=== PATIENT | female | born 1995 | race Caucasian/White ===

== ENCOUNTER 2016-06-10 21:02 | Emergency (ER) | payer OTHER ==
[2016-06-10 21:09] VITALS: BP 110/69; PULSE 79; RESP 16; TEMP 98.4; O2SAT 98
[2016-06-10 21:25] LABS: COLOR YELLOW; LEUKOCYTE ESTERASE,URINE 2+ (NEGATIVE); NITRITE,URINE NEGATIVE (NEGATIVE)
[2016-06-10 21:40] LABS: MUCUS TRACE /lpf (NONE-1+); RBC,URINE 50-182 /hpf (0-3); WBC,URINE 50-182 /hpf (0-3)
--- NOTE | 2016-06-10 21:43 | EDPHY ---
H & P Smoking Status: Never smoked Time Seen by Provider: 06/10/16 21:27 HPI/ROS: This is a 21-year-old female presenting to the emergency department complaining painful urination with blood onset tonight around 1900. Patient complaining of feeling pressure right around the suprapubic area, she does report she had an IUD placed 1 week ago so not sure if that is causing discomfort. Denies any back pain nausea vomiting fever chills. LMP 05/2016. Denies any other complaints REVIEW OF SYSTEMS: Constitutional: No fever no chills Cardiac: No chest pain Gastrointestinal: Suprapubic pressure Genitourinary: Dysuria with hematuria Musculoskeletal: No back pain Skin: No rash Neurological: No headache or dizziness (Kimi Caal) Physical Exam: CONSTITUTIONAL: patient appeared well nourished, non-ill appearing and normally developed. No acute distress. Vital signs as documented. HEENT: Normocephalic atraumatic NECK: FROM without pain RESP: Non-labored resp effort GI: Abd soft nondistended positive suprapubic tenderness. No CVA tenderness on palpate NEURO: AAOx3, ambulatory without gait disturbance SKIN: Warm and dry no rash. PSYCH: Normal affect, calm, no distress, acting appropriate (Kimi Caal) Constitutional: Initial Vital Signs Temperature (C) 36.9 C 06/10/16 21:06 Heart Rate 79 06/10/16 21:06 Respiratory Rate 16 06/10/16 21:06 Blood Pressure 110/69 06/10/16 21:06 O2 Sat (%) 98 06/10/16 21:06 O2 Delivery Mode Room Air Allergies/Adverse Reactions: cephalexin monohydrate [From Keflex] Allergy (Verified 06/10/16 21:05) peanut Allergy (Verified 06/10/16 21:05) all nuts Allergy (Uncoded 06/10/16 21:05) Home Medications: Medication Instructions Recorded Albuterol Inhaler Hfa 11/05/14 EPINEPHRINE [EPIPEN] 0.3 mg IM ONCE #2 syr 05/14/15 Fluconazole [Diflucan (*)] 150 mg PO ONCE #1 tab 06/10/16 Sulfamethox/Tmp 800/160 mg 1 tab PO BID #4 tab 06/10/16 [Bactrim Ds] Medical Decision Making ED Course/Re-evaluation: Discussed plan of care: UA sent for culture. Discussed urine results, first dose antibiotics given here in the ED with a single dose of pyridium. Discharge home---> stable, discussed discharge instructions with patient ( Kimi Caal) Differential Diagnosis: Differential diagnosis considered but not limited to pyelonephritis, PID, and urethritis (Kimi Caal) Other Provider: The patient was evaluated and managed by the Physician Edm Operator/ Nurse Practitioner. My co-signature indicates that I have reviewed this chart and I agree with the findings and plan of care as documented. I am the secondary supervising physician. (Yesenia Sue) - Data Points Laboratory Results: 06/10/16 21:10 Urine Color YELLOW Urine Appearance MODERATELY TURBID Urine pH 6.0 (5.0-7.5) Ur Specific [place] 1.010 (1.002-1.030) Urine Protein 2+ H (NEGATIVE) Urine Ketones NEGATIVE (NEGATIVE) Urine Blood 3+ H (NEGATIVE) Urine Nitrate NEGATIVE (NEGATIVE) Urine Bilirubin NEGATIVE (NEGATIVE) Urine Urobilinogen NEGATIVE EU EU (0.2-1.0) Ur Leukocyte Esterase 2+ H (NEGATIVE) Urine RBC 50-182 /hpf H /hpf (0-3) Urine WBC 50-182 /hpf H /hpf (0-3) Ur Epithelial Cells TRACE /lpf /lpf (NONE-1+) Urine Mucus TRACE /lpf /lpf (NONE-1+) Urine Glucose NEGATIVE (NEGATIVE) Medications Given: Discontinued Medications Phenazopyridine HCl (Pyridium) 200 mg PO EDNOW ONE Stop: 06/10/16 22:06 Last Admin: 06/10/16 23:13 Dose: 200 mg Trimethoprim/Sulfamethoxazole (Bactrim Ds Prepack#2) 1 btl TAKEHOME EDNOW ONE Stop: 06/10/16 22:05 Last Admin: 06/10/16 23:25 Dose: 1 btl Departure - Departure Disposition: Home, Routine, Self-Care Clinical Impression: UTI (urinary tract infection) Qualifiers: Urinary tract infection type: site unspecified Hematuria presence: with hematuria Qualified Code(s): N39.0 - Urinary tract infection, site not specified Condition: Good Instructions: Urinary Tract Infection in Women (ED), Dysuria (ED) Additional Instructions: 1. Take all medications as prescribed. you can also take ibuprofen 600 mg every 6-8 hours and/or Tylenol 500 mg to 1000 mg every 6 hours 2. Increase fluid intake, you can also drink cranberry juice this is been shown to be helpful with UTIs 3. you can also take azo [id number] this will help with urinary discomfort. Single dose was given tonight and he can take it for additional day 4. Follow up the primary care provider as needed Referrals: JUAN MANUEL KRAUSE [Primary Care Provider] - As per Instructions Prescriptions: Fluconazole [Diflucan (*)] 150 mg PO ONCE #1 tab Sulfamethox/Tmp 800/160 mg [Bactrim Ds] 1 tab PO BID #4 tab
[2016-06-10] MEDS ORDERED: SULFAMET/TMP DS PREPACK#2 BTL TAKEHOME ONE (22:04)
[2016-06-10] MEDS ORDERED: PHENAZOPYRIDINE HCL 200 MG TAB PO ONE (22:05)
== END 2016-06-10 23:24 | disposition home or self-care (01) ==
DX: N39.0 Urinary tract infection, site not specified (principal); B96.89 Other specified bacterial agents as the cause of diseases classified elsewhere